=== PATIENT | female | born 1985 | race African-American/Black ===

== ENCOUNTER 2016-11-27 15:34 | Emergency (ER) | payer BC, OTHER ==
[~2016-11-27] VITALS: Ht 147.3 cm; Wt 54.4 kg
[2016-11-27] MEDS ORDERED: NOHOMEMEDICATIONS (15:40)
[2016-11-27] MEDS ORDERED: MOBIC15 MG PO (16:46)
[2016-11-27 16:56] VITALS: BP 110/78
== END 2016-11-27 16:56 | disposition home or self-care (01) ==
LOC: ER 15:34
DX: S09.8XXA Other specified injuries of head, initial encounter (principal); V89.2XXA Person injured in unspecified motor-vehicle accident, traffic, initial encounter; Y93.I9 Activity, other involving external motion; Y92.488 Other paved roadways as the place of occurrence of the external cause; Y99.8 Other external cause status